=== PATIENT | female | born 1940 | race Caucasian/White ===

== ENCOUNTER → 2017-10-26 | Outpatient (CLI) | payer OTHER ==
[~2017-10-26] MED LIST: ASPIRIN ADULT L81 M1 PO; ATIVAN PO; BACTRIM DS 8001 TAB PO; CARDIZEM CD240 MG PO; COMBIVENT1 ARO IH; FLAGYL250 MG PO; LASIX20 MG PO; LASIX40 MG PO; LISINOPRIL10 MG PO; LOPRESSOR25 MG PO; METOPROLOL25 MG PO; NATURE'S BLEND100 MG PO; NIACIN1 POW
== END | disposition home or self-care (01) ==
LOC: US 10:36
DX: I82.5Z9 Chronic embolism and thrombosis of unspecified deep veins of unspecified distal lower extremity (principal); K45.8 Other specified abdominal hernia without obstruction or gangrene; M25.551 Pain in right hip

== ENCOUNTER 2018-06-25 12:34 | Inpatient (IN) | payer OTHER ==
[~2018-06-25] VITALS: Ht 165.1 cm; Wt 92.5 kg
--- NOTE | ~2018-06-25 | PN ---
[place], [place] PROGRESS NOTE NAME: CELIA SAWANT UNIT #: [id number] ROOM: 424 DOCTOR: EDOUARD KIRK DPM BIRTHDATE: [birth year] DATE: 06/27/18 ADDENDUM TO RESIDENT REPORT: I rounded with the resident and concur with their diagnosis and treatment as documented by the resident. EDOUARD KIRK DPM CM:PNTRANS [id number] 24 EDOUARD KIRK DPM 07/25/[id number] ALVINO MILLIGAN [email or web address]
--- NOTE | ~2018-06-25 | PR ---
[place], [place] PROGRESS NOTE NAME: CELIA SAWANT UNIT #: [id number] ROOM: 424 DOCTOR: EDOUARD KIRK DPM BIRTHDATE: [birth year] DOS: 06/27/2018 ADDENDUM Addendum dictation to resident, PGY1, Genaro Andres. The patient was seen for followup of peripheral edema, dermatitis and lymphedema and gout. She had pretibial edema noted on both lower extremities. Today concurred and evaluated her with Dr. Andres and Unna boots were applied to her bilaterally. EDOUARD KIRK DPM CM:HERMELINDA [id number] EDOUARD KIRK DPM 06/28/18 1152 interface
[2018-06-25 12:35] VITALS: BP 164/56
[2018-06-25 13:10] LABS: BASO # 0.1 10*3/uL (0.0-0.1); BASO % 0.7 % (0.0-1.0); EOS # 0.5 10*3/uL (0.0-0.4); HEMATOCRIT 40.9 % (37.0-47.0); HEMOGLOBIN 12.9 g/dl (12.0-16.0); LYMPH # 2.5 10*3/uL (1.3-4.4); MEAN CELL VOLUME 90.9 fl (81.0-99.0); MEAN CORPUSCULAR HGB 28.7 pg (27.0-31.0); MEAN CORPUSCULAR HGB CONC 31.5 g/dl (33.0-37.0); MEAN PLATELET VOLUME 12.2 fl (9.6-12.3); MONO # 1.1 10*3/uL (0.1-1.0); MONO % 10.7 % (3.0-9.0); NEUT # 6.1 10*3/uL (2.3-7.9); NEUT % 59.2 % (47.0-73.0); PLATELET COUNT AUTOMATED 243 10*3/uL (130-400); RED CELL DISTRI WIDTH 13.8 % (0-14.5); WHITE BLOOD COUNT 10.3 10*3/uL (4.8-10.8)
[2018-06-25 13:25] LABS: ALBUMIN 3.5 gm/dl (3.1-4.5); CREATININE 1.29 mg/dL (0.55-1.02); TOTAL PROTEIN 7.4 gm/dL (6.4-8.2)
[2018-06-25 13:56] VITALS: BP 142/59
[2018-06-25 15:36] VITALS: BP 142/67
[2018-06-25 15:42] VITALS: BP 142/55
[2018-06-25] MEDS ORDERED: GABAPENTIN100 M2 PO (19:35)
[2018-06-25] MEDS ORDERED: NORVASC5 MG PO (19:36)
[2018-06-25] MEDS ORDERED: VITAMIN D5000 UNI1 PO (19:37)
[2018-06-25] MEDS ORDERED: B-100 COMPLEX100 MG PO (19:37)
[2018-06-25] MEDS ORDERED: LASIX20 MG PO (19:39)
[2018-06-25 20:00] VITALS: BP 136/62
[2018-06-26] VITALS: BP 139/53
[2018-06-26 06:27] LABS: BASO # 0.1 10*3/uL (0.0-0.1); BASO % 0.8 % (0.0-1.0); EOS # 0.6 10*3/uL (0.0-0.4); HEMATOCRIT 39.7 % (37.0-47.0); HEMOGLOBIN 12.5 g/dl (12.0-16.0); LYMPH # 2.8 10*3/uL (1.3-4.4); LYMPH % 28.9 % (27.0-41.0); MEAN CELL VOLUME 90.8 fl (81.0-99.0); MEAN CORPUSCULAR HGB 28.6 pg (27.0-31.0); MEAN CORPUSCULAR HGB CONC 31.5 g/dl (33.0-37.0); MEAN PLATELET VOLUME 12.9 fl (9.6-12.3); MONO # 1.1 10*3/uL (0.1-1.0); MONO % 11.3 % (3.0-9.0); NEUT # 5.1 10*3/uL (2.3-7.9); NEUT % 52.8 % (47.0-73.0); PLATELET COUNT AUTOMATED 229 10*3/uL (130-400); RED BLOOD COUNT 4.37 10*6/uL (4.10-5.10); RED CELL DISTRI WIDTH 13.4 % (0-14.5); WHITE BLOOD COUNT 9.6 10*3/uL (4.8-10.8)
[2018-06-26 06:50] LABS: ALBUMIN 3.1 gm/dl (3.1-4.5); CREATININE 1.17 mg/dL (0.55-1.02); FREE T4 0.85 ng/dl (0.76-1.46); PHOSPHOROUS 2.6 mg/dL (2.5-4.9); TOTAL PROTEIN 6.8 gm/dL (6.4-8.2)
[2018-06-26 06:54] LABS: THYROID STIM HORMONE (HS) 11.1 uIU/ml (0.358-4.75); URIC ACID 8.6 mg/dL (2.6-6.0)
[2018-06-26 07:14] LABS: VITAMIN D, 25-HYDROXY 41.4 ng/mL (30-100)
[2018-06-26 08:00] VITALS: BP 150/74
[2018-06-26 12:00] VITALS: BP 156/65
[2018-06-26 16:00] VITALS: BP 135/81
[2018-06-26] MEDS ORDERED: ASPIRIN CHEWABL81 MG PO (17:10)
[2018-06-26 20:00] VITALS: BP 156/73
[2018-06-27] VITALS: BP 159/62
[2018-06-27 08:00] VITALS: BP 155/64
[2018-06-27] MEDS ORDERED: ALLOPURINOL300 MG PO (09:38)
[2018-06-27] MEDS ORDERED: PREDNISONE20 M1 PO (09:41)
[2018-06-27] MEDS ORDERED: Synthroid,Levo50 MCG PO (09:42)
[2018-06-27 12:00] VITALS: BP 102/60
[2018-06-27] MEDS ORDERED: ZOFRAN ODT4 MG SL (14:18)
== END 2018-06-27 14:30 | disposition home health service (06) | DRG 554 ==
LOC: ED 12:34 → EDHOLD 15:04 → 4E 15:04
PROVIDERS: Emergency Medicine; Registered Nurse
DX: M10.9 Gout, unspecified (principal); L03.115 Cellulitis of right lower limb; E66.9 Obesity, unspecified; N18.3 Chronic kidney disease, stage 3 (moderate); E87.8 Other disorders of electrolyte and fluid balance, not elsewhere classified; E11.22 Type 2 diabetes mellitus with diabetic chronic kidney disease; I12.9 Hypertensive chronic kidney disease with stage 1 through stage 4 chronic kidney disease, or unspecified chronic kidney disease; E11.69 Type 2 diabetes mellitus with other specified complication; E11.65 Type 2 diabetes mellitus with hyperglycemia; J44.9 Chronic obstructive pulmonary disease, unspecified; L30.9 Dermatitis, unspecified; I89.0 Lymphedema, not elsewhere classified; E78.5 Hyperlipidemia, unspecified; E03.9 Hypothyroidism, unspecified; Z88.5 Allergy status to narcotic agent; Z88.2 Allergy status to sulfonamides; Z88.8 Allergy status to other drugs, medicaments and biological substances; Z88.1 Allergy status to other antibiotic agents; Z91.041 Radiographic dye allergy status; Z88.0 Allergy status to penicillin; Z80.9 Family history of malignant neoplasm, unspecified; Z86.73 Personal history of transient ischemic attack (TIA), and cerebral infarction without residual deficits; Z85.828 Personal history of other malignant neoplasm of skin; Z82.3 Family history of stroke; Z82.49 Family history of ischemic heart disease and other diseases of the circulatory system; Z79.82 Long term (current) use of aspirin; Z79.899 Other long term (current) drug therapy; Z68.33 Body mass index [BMI] 33.0-33.9, adult

== ENCOUNTER → 2019-03-21 | Outpatient (CLI) | payer OTHER ==
[~2019-03-21] MED LIST changes: +ALLOPURINOL300 MG PO; +ASPIRIN CHEWABL81 MG PO; +B-100 COMPLEX100 MG PO; +GABAPENTIN100 M2 PO; +NORVASC5 MG PO; +PREDNISONE20 M1 PO; +Synthroid,Levo50 MCG PO; +VITAMIN D5000 UNI1 PO; +ZOFRAN ODT4 MG SL
== END | disposition home or self-care (01) ==
LOC: MAMMO 03-19 13:30
DX: N63.11 Unspecified lump in the right breast, upper outer quadrant (principal); N63.41 Unspecified lump in right breast, subareolar; N64.59 Other signs and symptoms in breast

== ENCOUNTER → 2020-06-10 | Outpatient (CLI) | payer OTHER | END | disposition home or self-care (01) | LOC: LAB 13:47 | PROVIDERS: ATTEND Nurse Practitioner Primary Care | DX: R19.7 Diarrhea, unspecified (principal) ==

== ENCOUNTER → 2021-10-27 | Outpatient (CLI) | payer OTHER | END | disposition home or self-care (01) | LOC: US 09:52 | PROVIDERS: ATTEND Nurse Practitioner Primary Care | DX: R60.0 Localized edema (principal) ==

== ENCOUNTER 2021-11-11 09:00 | Emergency (ER) | payer OTHER ==
[~2021-11-11] VITALS: Ht 165.1 cm; Wt 65.8 kg
[2021-11-11] MEDS ORDERED: LOPERAMIDE HCL2 MG PO (09:19)
[2021-11-11] MEDS ORDERED: ANASTROZOLE1 M1 PO (09:20)
[2021-11-11 09:49] LABS: HEMATOCRIT 37.3 % (37.0-47.0); MANUAL DIFF REFLEX YES; MEAN CELL VOLUME 97.1 fl (81.0-99.0); MEAN CORPUSCULAR HGB CONC 31.9 g/dl (33.0-37.0); MEAN PLATELET VOLUME 13.2 fl (9.6-12.3); PLATELET COUNT AUTOMATED 192 10*3/uL (130-400); RED BLOOD COUNT 3.84 10*6/uL (4.10-5.10); RED CELL DISTRI WIDTH 14.3 % (0-14.5); WHITE BLOOD COUNT 12.5 10*3/uL (4.8-10.8)
[2021-11-11 10:05] LABS: CREATININE 1.48 mg/dL (0.55-1.02); POTASSIUM 4.4 mmol/L (3.5-5.1); TOTAL PROTEIN 6.6 gm/dL (6.4-8.2)
[2021-11-11 10:07] LABS: PLATELET SUFFICIENCY NORMAL (NORMAL); POLYCHROMASIA SLIGHT; TOTAL CELLS COUNTED 100 #CELLS
[2021-11-11 10:55] LABS: BILIRUBIN Negative (Negative); BLOOD 2+ (Negative); CLARITY Clear (Clear); COLOR Yellow (Yellow); GLUCOSE Negative (Negative); KETONE Negative (Negative); LEUKO ESTERASE 1+ (Negative); NITRITE Positive (Negative); SPECIFIC GRAVITY 1.015 (1.001-1.030); UROBILINOGEN 0.2 E.U./dl (0.0-1.0)
[2021-11-11 11:05] LABS: BACTERIA 4+; RBC 21-30 rbc/hpf (0-2); WBC 31-40 wbc/hpf (0-5)
[2021-11-11 12:19] VITALS: BP 128/91
[2021-11-11] MEDS ORDERED: CIPRO500 MG PO (13:27)
[2021-11-11] MEDS ORDERED: TRAMADOL HCL50 MG PO (13:27)
== END 2021-11-11 13:49 | disposition home or self-care (01) ==
LOC: ED 09:00
PROVIDERS: Internal Medicine
DX: N39.0 Urinary tract infection, site not specified (principal); Z88.0 Allergy status to penicillin; Z88.1 Allergy status to other antibiotic agents; Z88.2 Allergy status to sulfonamides; Z88.8 Allergy status to other drugs, medicaments and biological substances; Z79.899 Other long term (current) drug therapy; Z98.890 Other specified postprocedural states

== ENCOUNTER → 2021-12-02 | Outpatient (CLI) | payer OTHER ==
[~2021-12-02] MED LIST changes: +ANASTROZOLE1 M1 PO; +CIPRO500 MG PO; +LOPERAMIDE HCL2 MG PO; +TRAMADOL HCL50 MG PO
== END | disposition home or self-care (01) ==
LOC: MAMMO 13:30
PROVIDERS: ATTEND Physician Assistant
DX: C50.111 Malignant neoplasm of central portion of right female breast (principal); R92.2 Inconclusive mammogram; N64.9 Disorder of breast, unspecified

== ENCOUNTER → 2023-02-02 | Outpatient (CLI) | payer OTHER ==
[~2023-02-02] MED LIST changes: +CIPRO250 MG PO
== END | disposition home or self-care (01) ==
LOC: MAMMO 12:43
PROVIDERS: ATTEND Physician Assistant
DX: C50.111 Malignant neoplasm of central portion of right female breast (principal); K43.9 Ventral hernia without obstruction or gangrene; M81.0 Age-related osteoporosis without current pathological fracture; N63.12 Unspecified lump in the right breast, upper inner quadrant; Z91.89 Other specified personal risk factors, not elsewhere classified

== ENCOUNTER 2023-03-08 12:34 | Inpatient (IN) | payer OTHER ==
[~2023-03-08] VITALS: Ht 165.1 cm; Wt 68.6 kg
[2023-03-08 12:35] VITALS: BP 180/63
[2023-03-08 13:32] LABS: BASO % 0.3 % (0.0-1.0); EOS # 0.3 10*3/uL (0.0-0.4); EOS % 3.3 % (1.0-4.0); HEMATOCRIT 37.4 % (37.0-47.0); LYMPH # 2.3 10*3/uL (1.3-4.4); LYMPH % 26.4 % (27.0-41.0); MEAN CELL VOLUME 92.3 fl (81.0-99.0); MEAN CORPUSCULAR HGB 29.9 pg (27.0-31.0); MEAN CORPUSCULAR HGB CONC 32.4 g/dl (33.0-37.0); MEAN PLATELET VOLUME 11.9 fl (9.6-12.3); MONO # 1.2 10*3/uL (0.1-1.0); MONO % 13.5 % (3.0-9.0); NEUT # 4.9 10*3/uL (2.3-7.9); NEUT % 56.3 % (47.0-73.0); PLATELET COUNT AUTOMATED 159 10*3/uL (130-400); RED BLOOD COUNT 4.05 10*6/uL (4.10-5.10); RED CELL DISTRI WIDTH 13.3 % (0-14.5); WHITE BLOOD COUNT 8.7 10*3/uL (4.8-10.8)
[2023-03-08 14:01] LABS: TOTAL PROTEIN 6.2 gm/dL (6.0-8.0)
[2023-03-08 15:39] LABS: BILIRUBIN Negative (Negative); BLOOD Negative (Negative); CLARITY Clear (Clear); COLOR Yellow (Yellow); GLUCOSE Negative (Negative); KETONE Negative (Negative); LEUKO ESTERASE 1+ (Negative); NITRITE Negative (Negative); PH 5.5 (4.5-8.0); SPECIFIC GRAVITY 1.015 (1.001-1.030); UROBILINOGEN 0.2 E.U./dl (0.0-1.0)
[2023-03-08 15:59] LABS: BACTERIA 4+; WBC 21-30 wbc/hpf (0-5)
[2023-03-08 18:25] VITALS: BP 164/81
[2023-03-08 18:26] VITALS: BP 162/45
[2023-03-08] MEDS ORDERED: LASIX20 MG PO (19:19)
[2023-03-08] MEDS ORDERED: VITAMIN D350 MCG PO (19:19)
[2023-03-08] MEDS ORDERED: METOPROLOL SUCC25 M2 PO (19:22)
[2023-03-09] VITALS: BP 157/59
[2023-03-09 06:06] LABS: POTASSIUM 3.7 mmol/L (3.4-5.1); THYROID STIM HORMONE (HS) 2.423 uIU/ml (0.550-4.780); TOTAL PROTEIN 6.2 gm/dL (6.0-8.0)
[2023-03-09 06:24] LABS: ACT PARTIAL THROMBO TIME 26.9 SECONDS (20.0-32.1)
[2023-03-09 06:29] LABS: BASO # 0.1 10*3/uL (0.0-0.1); BASO % 0.7 % (0.0-1.0); EOS # 0.3 10*3/uL (0.0-0.4); EOS % 2.9 % (1.0-4.0); HEMATOCRIT 37.9 % (37.0-47.0); LYMPH # 2.4 10*3/uL (1.3-4.4); LYMPH % 26.8 % (27.0-41.0); MEAN CELL VOLUME 93.6 fl (81.0-99.0); MEAN CORPUSCULAR HGB 30.1 pg (27.0-31.0); MEAN CORPUSCULAR HGB CONC 32.2 g/dl (33.0-37.0); MEAN PLATELET VOLUME 12.4 fl (9.6-12.3); MONO # 1.2 10*3/uL (0.1-1.0); MONO % 12.8 % (3.0-9.0); NEUT # 5.1 10*3/uL (2.3-7.9); NEUT % 56.6 % (47.0-73.0); PLATELET COUNT AUTOMATED 165 10*3/uL (130-400); RED BLOOD COUNT 4.05 10*6/uL (4.10-5.10); RED CELL DISTRI WIDTH 13.2 % (0-14.5)
[2023-03-09 07:03] LABS: VITAMIN D, 25-HYDROXY 43.2 ng/mL (30-100)
[2023-03-09 08:00] VITALS: BP 171/57
[2023-03-09 12:00] VITALS: BP 160/59
[2023-03-09 16:00] VITALS: BP 143/55
[2023-03-09 20:00] VITALS: BP 131/65
[2023-03-10] VITALS: BP 134/62
[2023-03-10 08:00] VITALS: BP 134/75
[2023-03-10 09:38] LABS: POTASSIUM 4.2 mmol/L (3.4-5.1)
[2023-03-10] MEDS ORDERED: OMNICEF300 MG PO (11:23)
[2023-03-10 12:00] VITALS: BP 132/49
== END 2023-03-10 17:45 | disposition home or self-care (01) | DRG 690 ==
LOC: ED 12:34 → 4E 16:52 → EDHOLD 16:52 → 4E 17:47
PROVIDERS: Emergency Medicine; Internal Medicine; ADMIT Family Medicine; ATTEND Family Medicine
DX: N30.00 Acute cystitis without hematuria (principal); E44.0 Moderate protein-calorie malnutrition; I50.32 Chronic diastolic (congestive) heart failure; I13.0 Hypertensive heart and chronic kidney disease with heart failure and stage 1 through stage 4 chronic kidney disease, or unspecified chronic kidney disease; M54.42 Lumbago with sciatica, left side; B96.1 Klebsiella pneumoniae [K. pneumoniae] as the cause of diseases classified elsewhere; C50.919 Malignant neoplasm of unspecified site of unspecified female breast; K43.9 Ventral hernia without obstruction or gangrene; E87.8 Other disorders of electrolyte and fluid balance, not elsewhere classified; E66.9 Obesity, unspecified; E78.5 Hyperlipidemia, unspecified; J44.9 Chronic obstructive pulmonary disease, unspecified; E11.22 Type 2 diabetes mellitus with diabetic chronic kidney disease; E03.9 Hypothyroidism, unspecified; Z88.5 Allergy status to narcotic agent; Z88.0 Allergy status to penicillin; Z88.2 Allergy status to sulfonamides; Z88.1 Allergy status to other antibiotic agents; Z91.041 Radiographic dye allergy status; Z88.8 Allergy status to other drugs, medicaments and biological substances; Z98.891 History of uterine scar from previous surgery; Z82.3 Family history of stroke; Z80.3 Family history of malignant neoplasm of breast; Z82.49 Family history of ischemic heart disease and other diseases of the circulatory system; Z79.1 Long term (current) use of non-steroidal anti-inflammatories (NSAID); Z79.899 Other long term (current) drug therapy; Z68.25 Body mass index [BMI] 25.0-25.9, adult; N18.32 Chronic kidney disease, stage 3b

== ENCOUNTER → 2023-07-06 | Outpatient (CLI) | payer OTHER ==
[~2023-07-06] MED LIST changes: +METOPROLOL SUCC25 M2 PO; +OMNICEF300 MG PO; +VITAMIN D350 MCG PO
[2023-07-06 15:36] LABS: BASO % 0.4 % (0.0-1.0); BILIRUBIN Negative (Negative); BLOOD Negative (Negative); CLARITY Clear (Clear); COLOR Yellow (Yellow); EOS # 0.3 10*3/uL (0.0-0.4); EOS % 3.7 % (1.0-4.0); GLUCOSE Negative (Negative); HEMATOCRIT 37.7 % (37.0-47.0); KETONE Negative (Negative); LEUKO ESTERASE 2+ (Negative); LYMPH # 2.2 10*3/uL (1.3-4.4); LYMPH % 24.1 % (27.0-41.0); MEAN CELL VOLUME 93.1 fl (81.0-99.0); MEAN CORPUSCULAR HGB 29.9 pg (27.0-31.0); MEAN CORPUSCULAR HGB CONC 32.1 g/dl (33.0-37.0); MONO # 1.1 10*3/uL (0.1-1.0); MONO % 11.6 % (3.0-9.0); NEUT # 5.4 10*3/uL (2.3-7.9); NITRITE Positive (Negative); PH 5.5 (4.5-8.0); PLATELET COUNT AUTOMATED 219 10*3/uL (130-400); RED BLOOD COUNT 4.05 10*6/uL (4.10-5.10); RED CELL DISTRI WIDTH 13.5 % (0-14.5); SPECIFIC GRAVITY 1.015 (1.001-1.030); WHITE BLOOD COUNT 9.1 10*3/uL (4.8-10.8)
[2023-07-06 15:44] LABS: URINE CREATININE RANDOM 77.35 mg/dL
[2023-07-06 15:45] LABS: BACTERIA 2+; WBC TNTC wbc/hpf (0-5)
[2023-07-06 16:05] LABS: VITAMIN D, 25-HYDROXY 32.6 ng/mL (30-100)
== END | disposition home or self-care (01) ==
LOC: LAB 15:10
PROVIDERS: ATTEND Internal Medicine Nephrology
DX: N18.30 Chronic kidney disease, stage 3 unspecified (principal); N25.81 Secondary hyperparathyroidism of renal origin; D63.1 Anemia in chronic kidney disease; Z79.899 Other long term (current) drug therapy

== ENCOUNTER → 2023-08-11 | Outpatient (CLI) | payer OTHER | END | disposition home or self-care (01) | LOC: RAD 14:00 | PROVIDERS: ATTEND Physician Assistant | DX: M81.0 Age-related osteoporosis without current pathological fracture (principal); C50.111 Malignant neoplasm of central portion of right female breast; K43.9 Ventral hernia without obstruction or gangrene; Z91.89 Other specified personal risk factors, not elsewhere classified ==